=== PATIENT | male | born 1985 | race Hispanic/Latino ===

== ENCOUNTER 2020-11-21 20:21 | Inpatient (IN) | payer SELFPAY ==
--- OUTSIDE RECORDS SUMMARY | 2020-11-21 20:24 | XMS REPORT | Continuity of Care Document ---
:1985 Author Organization [facility] t Address [address] [place] [address] Care Team Providers Name Role Phone Larry Vanessa DO Attending Clinician Naomi POE Attending Clinician Russell Sims DO Attending Clinician Naomi POE Admitting Clinician Problems This patient has no known problems. Allergies, Adverse Reactions, Alerts This patient has no known allergies or adverse reactions. Medications This patient has no known medications. Procedures This patient has no known procedures. Encounters Start End Encounter Admission Attending Care Care Encounter Source Date/Time Date/Time Type Type Clinicians Facility Department ID 2020-08-10 2020-08-13 [facility] Chiara Vanessa [id number] 09:36:00 15:15:00 Encounter Willie Salgado [id number] Edgar Sims [facility] [id number] Results This patient has no known results.
--- NOTE | 2020-11-21 21:01 | EDPHYS ---
Physician Documentation [facility] Name: Alex Naik Age: 35 yrs Sex: Male : 1985 Arrival Date: 11/21/2020 Time: 20:27 Bed 5 Private MD: ED Physician Theron Christy HPI: 11/21 21:07 This 35 yrs old Male presents to ER via Ambulatory with complaints of Foot Pain, Wound jr8 Infection. 21:07 Onset: The symptoms/episode began/occurred gradually, 2 day(s) ago. Modifying factors: jr8 The symptoms are alleviated by nothing. the symptoms are aggravated by movement. Associated signs and symptoms: The patient has no apparent associated signs or symptoms. Severity of symptoms: At their worst the symptoms were moderate. It is unknown whether or not the patient has had similar symptoms in the past. The patient has not recently seen a physician. Patient stated that he has two open diabetic foot wounds that he has been cleaning and treating at home. The left one started to become more painful, red, and swollen over the last 2 days . Historical: - Allergies: 20:42 No Known Allergies; lp1 - Home Meds: 20:42 Metformin Oral [Active]; lp1 - PMHx: 20:42 Diabetes - IDDM; lp1 - PSHx: 20:42 None; lp1 - Immunization history:: Adult Immunizations up to date. - Social history:: Smoking status: Patient denies any tobacco usage or history of. ROS: 21:07 Eyes: Negative for injury, pain, redness, and discharge, ENT: Negative for injury, jr8 pain, and discharge, Neck: Negative for injury, pain, and swelling, Cardiovascular: Negative for chest pain, palpitations, and edema, Respiratory: Negative for shortness of breath, cough, wheezing, and pleuritic chest pain, Abdomen/GI: Negative for abdominal pain, nausea, vomiting, diarrhea, and constipation, Back: Negative for injury and pain, Neuro: Negative for headache, weakness, numbness, tingling, and seizure. 21:07 MS/extremity: Positive for erythema, pain, swelling, tenderness, of the left foot. 21:07 Skin: Positive for ulceration, of the right foot and left foot. Exam: 21:07 Constitutional: This is a well developed, well nourished patient who is awake, alert, jr8 and in no acute distress. Cardiovascular: Regular rate and rhythm with a normal S1 and S2. No gallops, murmurs, or rubs. Normal PMI, no JVD. No pulse deficits. Respiratory: Lungs have equal breath sounds bilaterally, clear to auscultation and percussion. No rales, rhonchi or wheezes noted. No increased work of breathing, no retractions or nasal flaring. MS/ Extremity: Pulses equal, no cyanosis. Neurovascular intact. Full, normal range of motion. Neuro: Awake and alert, GCS 15, oriented to person, place, time, and situation. Cranial nerves II-XII grossly intact. Motor strength 5/5 in all extremities. Sensory grossly intact. 21:07 Skin: Patient has 2 cm open wound to right foot. No erythema or discharge noted. Patient has another 2 cm open wound to left foot at the great toe with surrounding erythema and swelling extending to dorsum of foot . Vital Signs: 20:40 BP 151 / 90; Pulse 88; Resp 18; Temp 99.7(O); Pulse Ox 100% on R/A; Weight 92.08 kg lp1 (R); Height 5 ft. 8 in. (172.72 cm); Pain 9/10; 11/22 00:16 BP 125 / 78; Pulse 78; Resp 18; Temp 98.9; Pulse Ox 99% ; ea 11/21 20:40 Body Mass Index 30.87 (92.08 kg, 172.72 cm) lp1 MDM: 11/21 20:53 Patient medically screened. jr8 20:59 Data reviewed: vital signs, nurses notes, lab test result(s), radiologic studies, plain jr8 films. Data interpreted: Pulse oximetry: on room air is 100 %. Interpretation: normal. Counseling: I had a detailed discussion with the patient and/or guardian regarding: the historical points, exam findings, and any diagnostic results supporting the discharge/admit diagnosis, lab results, radiology results, the need for further work-up and treatment in the hospital. 11/21 20:58 Order name: CBC with Diff 8 11/21 20:58 Order name: Basic Metabolic Panel; Complete Time: 22:27 [facility] 11/21 20:58 Order name: Blood Culture Adult (2) [facility] 11/21 20:58 Order name: ESR; Complete Time: 23:49 jr8 11/21 20:58 Order name: CRP; Complete Time: 22:27 jr8 11/21 20:59 Order name: CBC with Automated Diff; Complete Time: 23:49 EDMS 11/21 20:58 Order name: XRAY Foot LEFT 3 View jr8 11/21 21:01 Order name: XRAY Foot RIGHT 3 View jr8 11/21 21:16 Order name: COVID-19 : Document "Date of Symptom Onset" if Symptomatic. iw 11/21 20:58 Order name: IV; Complete Time: 21:23 jr8 Administered Medications: 21:18 Drug: Zofran (Ondansetron) 4 mg Route: IVP; Site: right forearm; ea 21:22 Drug: LevaQUIN (levofloxacin) 500 mg Volume: 100 ml; Route: IVPB; Infused Over: 60 ea mins; Site: right forearm; 22:41 Follow up: Response: No adverse reaction; IV Status: Completed infusion rr5 21:22 Drug: morphine 4 mg Route: IVP; Site: right forearm; ea 22:20 Drug: vancoMYCIN 1 grams Route: IVPB; Infused Over: 2 hrs; Site: right forearm; ea 22:58 Drug: Insulin Regular Human 10 units {Co-Signature: rr5 (Alfonso Akhtar RN).} Route: ea Sub-Q; Site: left upper arm; 22:59 Drug: NS 0.9% 1000 ml Route: IV; Rate: 100 ml/hr; Site: right forearm; ea Disposition: 11/22 07:06 Co-signature as Attending Physician, Theron Christy MD. [facility] Disposition: 11/21/20 21:00 Hospitalization ordered by Juvenal Hyman for Inpatient Admission. Preliminary diagnosis are Diabetes mellitus due to underlying condition with foot ulcer, Cellulitis of left lower limb, Osteomyelitis. - Bed requested for Telemetry/MedSurg (Inpatient). - Status is Inpatient Admission. ea - Condition is Stable. - Problem is new. - Symptoms are unchanged. Signatures: Dispatcher [employer] [facility] Coretta Wilcox RN RN lp1 Andrez Carrera PA PA jr8 Lory Hidalgo RN RN cg Antunez, Elena, RN RN ea Holmes, Maurice, MD MD [facility] Alfonso Akhtar RN rr5 Alfonso Akhtar RN rr5 Corrections: (The following items were deleted from the chart) 11/21 21:48 21:00 Hospitalization Ordered by Juvenal Hyman DO for Inpatient Admission. Preliminary cg diagnosis is Diabetes mellitus due to underlying condition with foot ulcer; Cellulitis of left lower limb; Osteomyelitis. Bed requested for Telemetry/MedSurg (Inpatient). Status is Inpatient Admission. Condition is Stable. Problem is new. Symptoms are unchanged. jr8 11/22 00:16 11/21 21:48 11/21/2020 21:00 Hospitalization Ordered by Juvenal Hyman DO for Inpatient ea Admission. Preliminary diagnosis is Diabetes mellitus due to underlying condition with foot ulcer; Cellulitis of left lower limb; Osteomyelitis. Bed requested for Telemetry/MedSurg (Inpatient). Status is Inpatient Admission. Condition is Stable. Problem is new. Symptoms are unchanged. cg
--- NOTE | 2020-11-21 21:01 | ER ---
Nurse's Notes [facility] Name: Alex Naik Age: 35 yrs Sex: Male : 1985 Arrival Date: 11/21/2020 Time: 20:27 Bed 5 Private MD: Diagnosis: Diabetes mellitus due to underlying condition with foot ulcer;Cellulitis of left lower limb;Osteomyelitis Presentation: 11/21 20:40 Chief complaint: Patient states: Reports infection to left great toe for the past lp1 month, becoming more painful; reports some "white liquid" drainage from site; Denies fever. Coronavirus screen: Client denies travel out of the [place] in the last 14 days. At this time, the client does not indicate any symptoms associated with coronavirus-19. Ebola Screen: No symptoms or risks identified at this time. Risk Assessment: Do you want to hurt yourself or someone else? Patient reports no desire to harm self or others. Onset of symptoms was November 21, 2020. 20:40 Method Of Arrival: Ambulatory lp1 20:40 Acuity: JCARLOS 3 lp1 20:40 Initial Sepsis Screen: Does the patient meet any 2 criteria? No. Patient's initial lp1 sepsis screen is negative. Does the patient have a suspected source of infection? No. Patient's initial sepsis screen is negative. Triage Assessment: 23:19 General: Appears in no apparent distress. Behavior is appropriate for age. Pain: ea Complains of pain in right foot and left foot. Historical: - Allergies: 20:42 No Known Allergies; lp1 - Home Meds: 20:42 Metformin Oral [Active]; lp1 - PMHx: 20:42 Diabetes - IDDM; lp1 - PSHx: 20:42 None; lp1 - Immunization history:: Adult Immunizations up to date. - Social history:: Smoking status: Patient denies any tobacco usage or history of. Screenin:01 Abuse screen: Denies threats or abuse. Nutritional screening: No deficits noted. ea Tuberculosis screening: No symptoms or risk factors identified. Fall Risk None identified. Assessment: 21:30 General: Appears in no apparent distress. Behavior is calm, cooperative, appropriate ea for age. Pain: Complains of pain in right foot and left foot. Cardiovascular: Patient's skin is warm and dry. Respiratory: Airway is patent Respiratory effort is even, unlabored, Respiratory pattern is regular, symmetrical. Derm: Skin is pink, warm \\T\\ dry. Wound noted ball of right foot and plantar aspect of left first toe Wound is diabetic ulcer unsteagable with eschar tissue. 22:00 Reassessment: Patient and/or family updated on plan of care and expected duration. Pain ea level reassessed. Patient is alert, oriented x 3, equal unlabored respirations, skin warm/dry/pink. Vital Signs: 20:40 BP 151 / 90; Pulse 88; Resp 18; Temp 99.7(O); Pulse Ox 100% on R/A; Weight 92.08 kg lp1 (R); Height 5 ft. 8 in. (172.72 cm); Pain /; 11/22 00:16 BP 125 / 78; Pulse 78; Resp 18; Temp 98.9; Pulse Ox 99% ; ea 11/21 20:40 Body Mass Index 30.87 (92.08 kg, 172.72 cm) lp1 ED Course: 11/21 20:27 Patient arrived in ED. bp1 20:41 Triage completed. lp1 20:42 Arm band placed on right wrist. lp1 20:47 Andrez Carrera PA is PHCP. jr8 20:47 Theron Christy MD is Attending Physician. jr8 20:58 Audra Lovell, ZI is Primary Nurse. ea 20:59 Juvenal Hyman DO is Hospitalizing Provider. jr8 21:01 Patient has correct armband on for positive identification. Bed in low position. Call ea light in reach. Side rails up X2. 21:18 Inserted saline lock: 20 gauge in right forearm, using aseptic technique. Blood ea collected. 21:43 XRAY Foot LEFT 3 View In Process Unspecified. EDMS 21:43 XRAY Foot RIGHT 3 View In Process Unspecified. EDMS 23:27 No provider procedures requiring assistance completed. Patient admitted, IV remains in ea place. Administered Medications: 21:18 Drug: Zofran (Ondansetron) 4 mg Route: IVP; Site: right forearm; ea 21:22 Drug: LevaQUIN (levofloxacin) 500 mg Volume: 100 ml; Route: IVPB; Infused Over: 60 ea mins; Site: right forearm; 22:41 Follow up: Response: No adverse reaction; IV Status: Completed infusion rr5 21:22 Drug: morphine 4 mg Route: IVP; Site: right forearm; ea 22:20 Drug: vancoMYCIN 1 grams Route: IVPB; Infused Over: 2 hrs; Site: right forearm; ea 22:58 Drug: Insulin Regular Human 10 units {Co-Signature: rr5 (Alfonso Akhtar RN).} Route: ea Sub-Q; Site: left upper arm; 22:59 Drug: NS 0.9% 1000 ml Route: IV; Rate: 100 ml/hr; Site: right forearm; ea Outcome: 21:00 Decision to Hospitalize by Provider. 8 23:27 Instructed on the need for admit. ea 11/22 00:15 Admitted to Med/surg accompanied by tech, via wheelchair, room 230, with chart, Report ea called to Receiving nurse on second floor Condition: stable 00:16 Patient left the ED. ea Signatures: Dispatcher [employer] EDMS Coretta Wilcox RN RN lp1 Andrez Carrera PA PA jr8 Audra Lovell RN RN ea Roque, Raymond, RN RN rr5 Cesia Jackson RN rr5 Corrections: (The following items were deleted from the chart) 11/21 20:45 20:40 Acuity: JCARLOS 4 lp1 lp1
[2020-11-21] MEDS ORDERED: MORPHINE 4 MG/ML SYR ONE (21:22)
[2020-11-21] MEDS ORDERED: Levofloxacin500mg IV 500 MG/100 ML BAG IV ONE (21:22)
[2020-11-21] MEDS ORDERED: VANCOMYCIN 1 GM/VIAL ONE (21:22)
[2020-11-21] MEDS ORDERED: ONDANSETRON 4 MG/2 ML VIAL ONE (21:22)
[2020-11-21] MEDS ORDERED: NA CHLORIDE 0.9% 250 ML ONE (21:22)
[2020-11-21 22:22] LABS: Potassium 4.5 mmol/L (3.5-5.1)
[2020-11-21 22:24] LABS: Absolute Lymphocytes (CBC) 2.1 K/uL (0.7-4.9); Basophils % 0.5 % (0-1.3); Hematocrit 37.9 % (39.6-49.0); Lymphocytes % 17.5 % (15.3-44.8); MPV 9.5 fL (7.6-11.3)
[2020-11-21] MEDS ORDERED: INSULIN -REGULAR HUMAN 50 UNIT/0.5 ML ML ONE (23:10)
[2020-11-21] MEDS ORDERED: NA CHLORIDE 0.9% 1,000 ML ONE (23:10)
[2020-11-22] MEDS ORDERED: ONDANSETRON 4 MG/2 ML VIAL IV PRN (00:32)
[2020-11-22 00:51] VITALS: BMI 31.1
[2020-11-22] MEDS: NA CHLORIDE 0.9% 1,000 ML IV SCH ×4 (00:51→23:08)
[2020-11-22] MEDS: MORPHINE 2 MG/ML SYR IV PRN ×4 (00:53→23:26)
--- NOTE | 2020-11-22 00:59 | P.HP ---
Certification for Inpatient Patient admitted to: Inpatient With expected LOS: >2 Midnights Patient will require the following post-hospital care: None Practitioner: I am a practitioner with admitting privileges, knowledge of patient current condition, hospital course, and medical plan of care. Services: Services provided to patient in accordance with Admission requirements found in Title 42 Section 412.3 of the Code of Federal Regulations Patient History Date of Service: 11/21/20 Reason for admission: Diabetic ulcer History of Present Illness: 35-year-old male with history of diabetes mellitus type 2 presents emergency department for left great toe wound/infection. Patient reports that he has had a diabetic ulcer to the plantar aspect of his left great toe for approximately 1 month but noticed approximately 2 days ago areas of redness swelling and White discharge. Patient also noted to have ulceration to the plantar aspect of the right midfoot. Patient evaluated in the emergency department, labs significant for white blood cell count 11.7 creatinine 1.63 GFR 48, no labs available for comparison, glucose 400 C-reactive protein 117 sodium 132. X-rays of both feet obtains left foot without acute fracture or dislocation, no reported osteomyelitis signs, x-ray of the right foot demonstrates constellation of findings suspicious for Charcot arthropathy. ED provider wishes to admit patient for diabetic foot wound and uncontrolled diabetes mellitus type 2. Allergies No Known Allergies Allergy (Unverified 11/22/20 00:32) - Past Medical/Surgical History Diabetic: Yes -: Diabetes mellitus type 2 -: Debridement dorsum of right foot Psychosocial/ Personal History: Patient is unemployed, lives with his mother - Family History Mother -: Hypertension, Diabetes - Social History Smoking Status: Never smoker Alcohol use: Yes CD- Drugs: No Caffeine use: Yes Place of Residence: Home Review of Systems 10-point ROS is otherwise unremarkable Musculoskeletal: Foot Pain, As per HPI Integumentary: As per HPI Physical Examination - Vital Signs Temperature: 98.9 F Blood Pressure: 125/78 Pulse: 78 Respirations: 18 - Physical Exam General: Alert, In no apparent distress, Oriented x3 HEENT: Atraumatic, PERRLA, Mucous membr. moist/pink Neck: Supple, 2+ carotid pulse no bruit, No LAD Respiratory: Clear to auscultation bilaterally, Normal air movement Cardiovascular: Regular rate/rhythm, Normal S1 S2 Gastrointestinal: Normal bowel sounds, No tenderness Musculoskeletal: No tenderness Integumentary: Diabetic ulcer (Plantar aspect of left great toe with necrotic tissue present and right midfoot) Neurological: Normal speech, Normal strength at 5/5 x4 extr, Normal tone, Normal affect Lymphatics: No axilla or inguinal lymphadenopathy - Studies Laboratory Data (last 24 hrs) 11/21/20 21:19: Sodium 132 L, Potassium 4.5, BUN 27 H, Creatinine 1.63 H, Glucose 400 H 11/21/20 21:19: WBC 11.70 H, Hgb 13.0 L, Hct 37.9 L, Plt Count 249 Assessment and Plan - Plan Assessment Diabetic ulceration dorsum of left great toe with necrotic tissue present, ulceration of the right midfoot Diabetes mellitus type 2 complicated with hyperglycemia Renal insufficiency Charcot arthropathy of the right foot Plan Diabetic ulceration dorsum of left great toe with necrotic tissue present, ulceration of the right midfoot: Continue with IV vancomycin/Levaquin, general surgery consulted for debridement. NPO after midnight. X-ray of the left great toe negative for signs of osteomyelitis, will order an MRI to rule out completely. DVT prophylaxis with Lovenox 40 mg subcutaneous once daily. Will consult wound healing. Diabetes mellitus type 2 complicated with hyperglycemia: A1c with morning labs, a.c. HS Accu-Cheks, sliding scale insulin therapy. Patient was reportedly on NPH previously and has not been on his insulin or metformin for approximately 1 month. Will initiate insulin therapy with 15 units of NPH twice daily. Renal insufficiency: No labs available for comparison, patient not aware of any renal dysfunction, will continue with hydration overnight, consult nephrology as necessary. Charcot arthropathy of the right foot: Patient need to follow up with podiatry on an outpatient basis. Discharge Plan: Home Plan to discharge in: Greater than 2 days - Advance Directives Does patient have a Living Will: No Does patient have a Durable POA for Healthcare: No - Code Status/Comfort Care Code Status Assessed: Yes (Full code) Critical Care: No Time Spent Managing Pts Care (In Minutes): 55
[2020-11-22] MEDS ORDERED: VANCOMYCIN 750 MG in NA CHLORIDE 0.9% 150 ML IVPB ONE (01:00)
[2020-11-22] MEDS ORDERED: VANCOMYCIN 1 GM/VIAL ONE (01:03)
[2020-11-22] MEDS ORDERED: NA CHLORIDE 0.9% 250 ML ONE (01:04)
[2020-11-22 06:41] LABS: Absolute Lymphocytes (CBC) 2.1 K/uL (0.7-4.9); Basophils % 0.5 % (0-1.3); Hematocrit 32.2 % (39.6-49.0); MPV 8.5 fL (7.6-11.3)
[2020-11-22 07:19] LABS: Albumin 2.3 g/dL (3.4-5.0); Bilirubin Total 0.3 mg/dL (0.2-1.0); Potassium 4.3 mmol/L (3.5-5.1); Protein, Total 6.5 g/dL (6.4-8.2)
[2020-11-22 07:22] LABS: Thyroid Stimulating Hormone 4.35 uIU/mL (0.360-3.740)
[2020-11-22] MEDS ORDERED: INSULIN 70/30 100 UNITS/ML SQ SCH (07:30)
[2020-11-22] MEDS: INSULIN -REGULAR HUMAN 50 UNIT/0.5 ML ML SQ SCH ×4 (07:30→20:28)
[2020-11-22] MEDS: Levofloxacin500mg IV 500 MG/100 ML BAG IV SCH (08:49)
[2020-11-22] MEDS ORDERED: VANCOMYCIN/NS 1 gm 1 GM/250 ML BAG IVPB SCH (09:00)
[2020-11-22] MEDS ORDERED: MIDAZOLAM HCL 2 MG/2 ML INJ ONE (11:01)
[2020-11-22] MEDS ORDERED: propofoL 200 MG/20 ML VIAL IV ONE (11:01)
[2020-11-22] MEDS ORDERED: dexAMETHasone 4 MG/ML VIAL ONE (11:02)
[2020-11-22] MEDS ORDERED: KETOROLAC 30 MG/ML INJ ONE (11:02)
[2020-11-22] MEDS ORDERED: LIDOCAINE 1% MPF 5 ML VIAL ONE (11:02)
[2020-11-22] MEDS ORDERED: FENTANYL CITR 100 MCG/2 ML ONE (11:02)
[2020-11-22] MEDS ORDERED: ONDANSETRON 4 MG/2 ML VIAL ONE (11:03)
--- NOTE | 2020-11-22 11:10 | P.PN ---
Subjective Date of Service: 11/22/20 Chief Complaint: Diabetic ulcer Subjective: Doing well Physical Examination - Vital Signs Temperature: 98.1 F Blood Pressure: 129/77 Pulse: 86 Respirations: 16 Pulse Ox (%): 97 - Studies Laboratory Data (last 24 hrs) 11/21/20 21:19: Sodium 132 L, Potassium 4.5, BUN 27 H, Creatinine 1.63 H, Glucose 400 H 11/21/20 21:19: WBC 11.70 H, Hgb 13.0 L, Hct 37.9 L, Plt Count 249 Assessment & Plan Discharge Plan: Home Plan to discharge in: 48 Hours Physician Review Additional Text: Physical exam: Patient alert, cooperative. No significant distress noted Heart: regular rate and rhythm Lungs: clear to auscultation GI: Soft nontender nondistended Extremities: Good range of motion to upper lower extremities Skin: Diabetic ulcer to the left great toe. Erythema, swelling noted. Ulcer to the right mid forefoot region also noted bandage in place. Impression: Diabetic ulceration to the dorsum of left great toe with cellulitis suspicious for osteomyelitis along with ulceration of the right midfoot Diabetes mellitus type 2 complicated with hyperglycemia Renal insufficiency Charcot arthropathy of the right foot Anemia of chronic disease Obesity, BMI 31.2 Plan Diabetic ulceration to the dorsum of left great toe with cellulitis suspicious for osteomyelitis along with ulceration of the right midfoot: Continue IV vancomycin and Levaquin. Surgery to do debridement today. X-rays negative for osteomyelitis. MRI ordered to further evaluate. If abnormal patient will require long-term IV to buttock therapy likely for 6 weeks. Continue DVT prophylaxis. Continue wound care. Patient will need strict control of diabetes. This was addressed in detail with the patient. We will try to set up with PCP to further monitor and manage his condition. Await recommendations by surgery. I will turn the service over to the hospitalist team tomorrow. I will go plan of care with him. Diabetes mellitus type 2 complicated with hyperglycemia: Hemoglobin A1c 11.5. Continue Accu-Cheks and sliding scale. We will start NPH. We will continue to adjust medication. We will try to arrange for the patient to see a PCP to continue his care as an outpatient. Hold Metformin at this time due to acute renal insufficiency. May need to restart at discharge if renal function stable. Acute renal insufficiency likely dehydration: Continue IV fluids and hydration. Will monitor and adjust medication appropriately. Will monitor renal function. Charcot arthropathy of the right foot: Patient need to follow up with podiatry on an outpatient basis. Anemia of chronic disease: We will monitor lab closely. Will check iron and B12 studies. Obesity, BMI 31.2: Continue lifestyle modification education. Time Spent Managing Pts Care (In Minutes): 55
[2020-11-22] MEDS ORDERED: GLUCAGON 1 MG/VIAL IM PRN (11:21)
[2020-11-22] MEDS ORDERED: TRAMADOL HCL 50 MG TAB PO PRN (11:22)
[2020-11-22] MEDS ORDERED: D50W 25 GM/50 ML VIAL IV PRN (11:35)
--- NOTE | 2020-11-22 11:49 | P.OP ---
Nut Tapper: NONE,NONE Preoperative diagnosis: Infected Wound BLE--Left great toe and Right foot wound Postoperative diagnosis: same Primary procedure: Debridement BLE wounds--Left great toe to sq and right foot wound to sq Anesthesia: General Estimated blood loss: min Specimen: C&S Findings: as above Complications: None Transferred to: Recovery Room Condition: Good
[2020-11-22] MEDS: COLLAGENASE 30 GM OINTMENT TOP ONE ×2 (11:52→11:53)
[2020-11-22] MEDS ORDERED: NEOSTIGMINE 1 MG/ML -5 ML ONE (11:52)
[2020-11-22] MEDS ORDERED: GLYCOPYRROLATE 0.2 MG/ML SYR ONE (11:52)
[2020-11-22] MEDS ORDERED: NA CHLORIDE 0.9% 1,000 ML ONE (11:53)
[2020-11-22] MEDS: VANCOMYCIN 1.75 GM in NA CHLORIDE 0.9% 500 ML IVPB SCH ×2 (12:23→23:05)
--- NOTE | 2020-11-22 12:33 | CON ---
Date of Consultation: 11/21/2020 Reason For Consultation: Infected wounds, bilateral lower extremities. History Of Present Illness: The patient is a 35-year-old gentleman, who presents with a long history of a left great toe wound. The right foot wound was started in March, I believe 2018, when he l ived in [place] at that time and [facility] be [facility] and then he recently in the last couple of months developed a nonhealing wound on the left great toe. He is a diabetic and has b een unable to get his insulin or he has no access to medical care. He says that he does not have ins urance and has not been able to get routine medical care that he needs. He came in because the wound had a foul smelling odor to it and had a whitish discharge pus and then he was evaluated in the [facility] room and was admitted for further workup. He does have x-ray finding of Charcot arthropathy on the right foot x-rays. Review of Systems: Otherwise unremarkable. Past Medical History: Significant for diabetes type 2. Past Surgical History: Debridement of the right foot wounds. Allergies: NO ALLERGIES. Social History: Does not smoke. Does drink alcohol. Family History: Significant for hypertension and diabetes. Physical Examination: Vital Signs: Stable. He is afebrile. General: He is awake, alert, and oriented x3. Head and Neck: Cranial nerves 2 through 12 are grossly within normal limits. No neck masses. No JV D. Throat clear. Neck supple. Chest: Clear. Heart: S1 and S2. Abdomen: Soft. Extremities: Neurovascularly intact. Diminished sensation and diminished dorsalis pedis and posteri or tibial pulses. On the right mid foot on the plantar aspect, there is approximately a 2.5 cm wound with infected edges, pressure ulcer as to the extent of the infection is unclear, but there does not appear to be abscess present. It does need debridement of the edges to have necrotic tissue. On th e left great toe, approximately a 1 inch open wound secondary to pressure with purulence emanating fr om it. There is surrounding erythema, warmth, and edema. Assessment: Bilateral lower extremity infected wounds, peripheral vascular disease, and diabetes. Recommendations: Continue IV antibiotics. We will debride the wound today. He will need further wo rkup to see whether he has significant osteo or not and whether he has any correctable vascular issue s. Following which, appropriate recommendation will be made. He can follow up in the [facility] regarding his wound care. The patient and family understand the risks, benefits, and alternative s of the debridement procedure and agreed. /[email or web address] Voice ID: [id number] Report ID: [id number]
--- NOTE | 2020-11-22 12:49 | OP ---
Date of Procedure: 11/22/2020 Surgeon: Santiago Mendoza MD Business Assistant: None. Preoperative Diagnosis: Infected wound, bilateral lower extremities. Postoperative Diagnosis: Infected wound, bilateral lower extremities. Procedure: Debridement of left great toe, 2 x 2 cm to subcutaneous tissue and debridement of right f oot plantar wound 3 x 3 cm to subcutaneous tissue. Estimated Blood Loss: Minimal. Specimen: Culture and sensitivity. Finding: As above. Anesthesia: General. Complications: None. Disposition: The patient tolerated the procedure in stable condition and taken to Recovery in good g eneral condition. Procedure In Detail: The patient was brought to the OR and placed in supine position. General anest hesia begun. The patient was prepped and draped in the usual sterile fashion. A 15-blade and scisso rs used to debride the callus portion of the wounds and the necrotic tissue was debrided in the cente r of the wound down through the subcutaneous tissue. There was some purulence present. Cultures wer e done. Then, after all debridement tissue wounds were removed, wound irrigated, bleeding controlled with cautery and Santyl dressing applied. The patient tolerated the procedure in stable condition and taken to Recovery in good general condition. /MODL Voice ID: [id number] Report ID: [id number]
[2020-11-22] MEDS: NPH (HUMAN) 100 UNITS/ML INSULIN SQ SCH (16:19)
[2020-11-22] MEDS ORDERED: VANCOMYCIN 1.75 GM in NA CHLORIDE 0.9% 500 ML IVPB SCH (19:00)
[2020-11-22] MEDS: HYDROCODONE/APAP 7.5/325 MG TAB PO PRN (20:25)
[2020-11-23 06:29] LABS: Absolute Lymphocytes (CBC) 1.3 K/uL (0.7-4.9); Basophils % 0.1 % (0-1.3); Hematocrit 30.6 % (39.6-49.0); Lymphocytes % 14.8 % (15.3-44.8); MPV 8.5 fL (7.6-11.3); RBC Red Blood Cell Count 3.82 M/uL (4.33-5.43)
[2020-11-23] MEDS: NA CHLORIDE 0.9% 1,000 ML IV SCH ×2 (06:32→17:06)
[2020-11-23 07:42] LABS: Ferritin 420.2 ng/mL (26-388); Potassium 4.3 mmol/L (3.5-5.1)
[2020-11-23] MEDS: ENOXAPARIN 40 MG/0.4 ML SQ SCH (08:24)
[2020-11-23] MEDS: NPH (HUMAN) 100 UNITS/ML INSULIN SQ SCH ×2 (08:25→17:08)
[2020-11-23] MEDS: INSULIN -REGULAR HUMAN 50 UNIT/0.5 ML ML SQ SCH ×4 (08:25→21:24)
[2020-11-23] MEDS: ASPIRIN EC 81 MG TAB PO SCH (08:25)
[2020-11-23] MEDS: FOLIC ACID 1 MG TABLET PO SCH (08:25)
[2020-11-23] MEDS: Levofloxacin500mg IV 500 MG/100 ML BAG IV SCH (08:26)
[2020-11-23] MEDS: MORPHINE 2 MG/ML SYR IV PRN ×3 (08:32→21:26)
[2020-11-23] MEDS: VANCOMYCIN 1.75 GM in NA CHLORIDE 0.9% 500 ML IVPB SCH ×2 (11:00→17:14)
--- NOTE | 2020-11-23 13:02 | RAD REPORT ---
EXAM DESCRIPTION: MRI - Foot Left Wo Cont - 11/23/2020 12:49 pm CLINICAL HISTORY: R/O osteomyelitis COMPARISON: Foot Left 3 View dated 11/21/2020; Foot Right 3 View dated 11/21/2020 TECHNIQUE: Multiplanar imaging of the left foot performed using T1 weighted, T1 fat saturation, T2 f at saturation and T2 stir sequencing. FINDINGS: Hypointense T1 and hyperintense T2 signal present throughout the first distal phalanx and most of the first proximal phalanx. No gross bone destructive changes on MR imaging. There is surroun ding edematous/ inflammatory soft tissue signal. No abscess or drainable fluid collections seen. The second- fifth toes and the metatarsals show no abnormal signal abnormality. No significant soft t issue signal abnormality. IMPRESSION: Osteomyelitis of the left first proximal and distal phalanges. No linn bone destruction evident. Edematous/inflammatory first toe soft tissues without drainable fluid collection
--- NOTE | 2020-11-23 14:57 | RAD REPORT ---
EXAM DESCRIPTION: X Ray Foot Left 3 View; 3 views CLINICAL HISTORY: 35 years Male, PAIN COMPARISON: None. FINDINGS/IMPRESSION: 1. No acute fracture or dislocation. 2. Moderate sized plantar calcaneal enthesopathy is present. 3. Vascular calcifications are present. Electronically signed by: Sarabjit Rossi MD 11/21/2020 10:29 PM CDT Due to temporary technical issues with the PACS/Fluency reporting system, reports are being signed by the in house radiologists without review as a courtesy to insure prompt reporting. The interpreting radiologist is fully responsible for the content of the report.
--- NOTE | 2020-11-23 15:05 | RAD REPORT ---
EXAM DESCRIPTION: X Ray Foot Right 3 View; 3 views CLINICAL HISTORY: 35 years Male, PAIN COMPARISON: None. FINDINGS: Extensive bony destruction across the midfoot with with chronic appearing bony fragmentati on and debris. There is lateral dislocation across the midfoot and midfoot collapse. Fifth metatarsal head, proximal and middle phalanx are absent. Diffuse soft tissue swelling with plantar ulceration a t the level of the midfoot are present. IMPRESSION: Constellation of findings as described above suspicious for Charcot arthropathy. Electronically signed by: Sarabjit Rossi MD 11/21/2020 10:36 PM CDT Due to temporary technical issues with the PACS/Fluency reporting system, reports are being signed by the in house radiologists without review as a courtesy to insure prompt reporting. The interpreting radiologist is fully responsible for the content of the report.
[2020-11-23] MEDS: HYDROCODONE/APAP 7.5/325 MG TAB PO PRN (17:14)
[2020-11-24] MEDS: NA CHLORIDE 0.9% 1,000 ML IV SCH ×4 (02:32→21:49)
[2020-11-24 04:34] LABS: Basophils % 0.8 % (0-1.3); Hematocrit 29.7 % (39.6-49.0); Lymphocytes % 33.2 % (15.3-44.8); MPV 8.2 fL (7.6-11.3); RBC Red Blood Cell Count 3.68 M/uL (4.33-5.43)
[2020-11-24 04:51] LABS: Potassium 4.2 mmol/L (3.5-5.1)
[2020-11-24] MEDS: MORPHINE 2 MG/ML SYR IV PRN ×3 (06:18→22:35)
[2020-11-24] MEDS: INSULIN -REGULAR HUMAN 50 UNIT/0.5 ML ML SQ SCH ×4 (07:30→21:00)
[2020-11-24] MEDS: FOLIC ACID 1 MG TABLET PO SCH (08:38)
[2020-11-24] MEDS: ASPIRIN EC 81 MG TAB PO SCH (08:38)
[2020-11-24] MEDS: ENOXAPARIN 40 MG/0.4 ML SQ SCH (08:38)
[2020-11-24] MEDS: Levofloxacin500mg IV 500 MG/100 ML BAG IV SCH (08:39)
[2020-11-24] MEDS: NPH (HUMAN) 100 UNITS/ML INSULIN SQ SCH ×2 (08:39→16:52)
--- NOTE | 2020-11-24 09:55 | P.PN ---
Subjective Date of Service: 11/23/20 Patient's MRI revealed osteomyelitis. Patient will need outpatient IV antibiotic therapy. Review of Systems 10-point ROS is otherwise unremarkable Physical Examination - Vital Signs Temperature: 97.9 F Blood Pressure: 130/75 Pulse: 76 Respirations: 19 Pulse Ox (%): 98 - Physical Exam General: Alert, In no apparent distress, Oriented x3 Respiratory: Clear to auscultation bilaterally, Normal air movement Cardiovascular: Regular rate/rhythm, Normal S1 S2, No murmurs Gastrointestinal: Normal bowel sounds, Soft and benign, Non-distended, No tenderness Musculoskeletal: No clubbing, No swelling, No tenderness Neurological: Sensation intact, Cranial nerves 3-12 intact - Studies Medications List Reviewed: Yes Assessment & Plan - Problems (Diagnosis) (1) Osteomyelitis Current Visit: Yes Status: Acute - Plan 1. Continue with IV antibiotic 2. Continue with local wound care 3. Wound care consultation/surgical consultation 4. Gentle IV hydration 5. Monitor CBC 6. Strict blood sugar monitoring 7. Pain control 8. GI and DVT prophylaxis Discharge Plan: Home Plan to discharge in: Greater than 2 days - Advance Directives Does patient have a Living Will: No Does patient have a Durable POA for Healthcare: No - Code Status/Comfort Care Code Status Assessed: Yes Code Status: Full Code Critical Care: No Time Spent Managing PTS Care (In Minutes): 35
--- NOTE | 2020-11-24 11:17 | RAD REPORT ---
EXAM DESCRIPTION: RAD - Chest Single View - 11/24/2020 10:48 am CLINICAL HISTORY: PICC line placement COMPARISON: None. FINDINGS: Portable chest was obtained following placement of a right upper extremity PICC line. The catheter tip is in the proximal most SVC.
--- NOTE | 2020-11-24 12:10 | RAD REPORT ---
EXAM DESCRIPTION: RAD - Chest Single View - 11/24/2020 12:00 pm CLINICAL HISTORY: PICC line placement COMPARISON: Portable November 24 FINDINGS: Portable chest was obtained following placement of a right upper extremity PICC line. The catheter tip is in the distal SVC.
[2020-11-24] MEDS: VANCOMYCIN 1.75 GM in NA CHLORIDE 0.9% 500 ML IVPB SCH (12:19)
--- NOTE | 2020-11-24 13:06 | PN ---
Date of Progress Note: 11/24/2020 Subjective: The patient is awake alert. No complaints. Objective: Vital signs: Stable, afebrile. Extremities: Dressing is clean, dry, and intact. Laboratory Data: Cultures pending. MRI shows osteomyelitis of the left first toe. Assessment: Status post debridement of bilateral foot wounds with osteomyelitis of the left foot. Recommendations: Continue wound care as ordered. IV antibiotics. Check cultures and adjust antibio tics accordingly. PICC line and the patient will need 6 weeks IV antibiotics. The patient can follo w up with me in the [facility] upon discharge. /MODL Voice ID: [id number] Report ID: [id number]
[2020-11-25] MEDS: MORPHINE 2 MG/ML SYR IV PRN (04:34)
[2020-11-25] MEDS: NA CHLORIDE 0.9% 1,000 ML IV SCH (04:34)
[2020-11-25 05:08] LABS: BUN Blood Urea Nitrogen 17 mg/dL (7-18); Bicarbonate 26 mmol/L (21-32); Glucose Level 152 mg/dL (74-106); Magnesium 1.7 mg/dL (1.8-2.4); Sodium Level 140 mmol/L (136-145)
[2020-11-25] MEDS: VANCOMYCIN 1.75 GM in NA CHLORIDE 0.9% 500 ML IVPB SCH (05:45)
[2020-11-25] MEDS: INSULIN -REGULAR HUMAN 50 UNIT/0.5 ML ML SQ SCH ×2 (07:30→12:42)
--- NOTE | 2020-11-25 07:41 | P.PN ---
Date of Service: 11/24/20 Subjective Patient is clinically doing well with no new complaints. Clinical symptoms continued to improve. Review of Systems 10-point ROS is otherwise unremarkable Physical Examination - Vital Signs Reviewed - Physical Exam General: Alert, In no apparent distress, Oriented x3 Respiratory: Clear to auscultation bilaterally, Normal air movement Cardiovascular: Regular rate/rhythm, Normal S1 S2, No murmurs Gastrointestinal: Normal bowel sounds, Soft and benign, Non-distended, No tenderness Musculoskeletal: No clubbing, No swelling, No tenderness Neurological: Sensation intact, Cranial nerves 3-12 intact Assessment 1. Osteomyelitis 2. History of diabetes Plan 1. Continue with IV antibiotic 2. Continue with local wound care 3. Wound care consultation/surgical consultation 4. Gentle IV hydration 5. Monitor CBC 6. Strict blood sugar monitoring 7. Pain control 8. GI and DVT prophylaxis
[2020-11-25] MEDS ORDERED: MAGNESIUM SULFATE 1 gm IVPB 1 GM/100 ML BAG IV ONE (08:00)
--- NOTE | 2020-11-25 09:02 | P.DS ---
Discharge Date: 11/25/20 Disposition: ROUTINE DISCHARGE Discharge Condition: GOOD Reason for Admission: Diabetic ulcer Consultations: General surgery - Problems (1) Osteomyelitis Current Visit: Yes Status: Acute Brief History of Present Illness: 35-year-old male with history of diabetes mellitus type 2 presents emergency department for left great toe wound/infection. Patient reports that he has had a diabetic ulcer to the plantar aspect of his left great toe for approximately 1 month but noticed approximately 2 days ago areas of redness swelling and White discharge. Patient also noted to have ulceration to the plantar aspect of the right midfoot. Patient evaluated in the emergency department, labs significant for white blood cell count 11.7 creatinine 1.63 GFR 48, no labs available for comparison, glucose 400 C-reactive protein 117 sodium 132. X-rays of both feet obtains left foot without acute fracture or dislocation, no reported osteomyelitis signs, x-ray of the right foot demonstrates constellation of findings suspicious for Charcot arthropathy. ED provider wishes to admit patient for diabetic foot wound and uncontrolled diabetes mellitus type 2. Hospital Course: Patient was taken to the operating room for debridement. Patient was found have osteomyelitis on MRI findings. Patient will need outpatient IV antibiotic therapy. Patient is unfunded and unable to get home health normally able to provide placement at a care home facility. Patient will need to come back to the hospital daily to get IV antibiotics. Will get this arranged as an outpatient. Case management was Consulted and patient's cultures revealed Pseudomonas and Streptococcus which were sensitive to Levaquin. Continue Levaquin going forward. Vital Signs/Physical Exam: Temp Pulse Resp BP Pulse Ox 97.9 F 76 19 130/75 98 11/25/20 07:44 11/25/20 07:44 11/25/20 07:44 11/25/20 07:44 11/25/20 07:44 General: Alert, In no apparent distress, Oriented x3 Laboratory Data at Discharge: WBC 9.00 K/uL (4.3-10.9) 11/24/20 04:16 Hgb 10.4 g/dL (13.6-17.9) L 11/24/20 04:16 Hct 29.7 % (39.6-49.0) L 11/24/20 04:16 Plt Count 229 K/uL (152-406) 11/24/20 04:16 Sodium 140 mmol/L (136-145) 11/25/20 04:26 Potassium 4.0 mmol/L (3.5-5.1) 11/25/20 04:26 BUN 17 mg/dL (7-18) 11/25/20 04:26 Creatinine 0.83 mg/dL (0.55-1.3) 11/25/20 04:26 Glucose 152 mg/dL (74-106) H 11/25/20 04:26 Magnesium 1.7 mg/dL (1.8-2.4) L 11/25/20 04:26 Total Bilirubin 0.3 mg/dL (0.2-1.0) 11/22/20 06:04 AST 12 U/L (15-37) L 11/22/20 06:04 ALT 16 U/L (12-78) 11/22/20 06:04 Alkaline Phosphatase 86 U/L (45-117) 11/22/20 06:04 Home Medications: Metformin ER [Glucophage ER*] 1 tab PO BID 11/22/20 Hydrocodone 7.5/APAP 325 [Grayling 7.5/325 mg*] 1 tab PO Q6H PRN #30 tab 11/25/20 Insulin NPH Human [Novolin N (Humulin N)*] 15 units SQ BIDWM #2 vial 11/25/20 New Medications: Hydrocodone 7.5/APAP 325 [Grayling 7.5/325 mg*] 1 tab PO Q6H PRN #30 tab PRN Reason: Pain Scale 5-7 (Moderate) Insulin NPH Human [Novolin N (Humulin N)*] 15 units SQ BIDWM #2 vial Physician Discharge Instructions: OK TO DC IV AND DC HOME FOLLOW-UP WITH PRIMARY CARE PROVIDER IN 1-2 WEEKS FOLLOW-UP WITH [facility] IN 1-2 WEEKS RETURN TO THE ER IF symptoms worsen CALL or TEXT DR. PENDLETON AT [phone] IF ANY QUESTIONS REGARDING HOSPITAL STAY. PLEASE CALL THE FLOOR AT [phone] IF ANY MEDICATION OR NURSING QUESTIONS. Diet: ADA Activity: Fall precautions Followup: NONE,NONE [Primary Care Provider] - Santiago Mendoza MD [ACTIVE - CAN ADMIT] - 12/08/20 ([facility] my clinic) Time spent managing pt's care (in minutes): 35
[2020-11-25] MEDS: Levofloxacin500mg IV 500 MG/100 ML BAG IV SCH (10:11)
[2020-11-25] MEDS: ASPIRIN EC 81 MG TAB PO SCH (10:12)
[2020-11-25] MEDS: FOLIC ACID 1 MG TABLET PO SCH (10:12)
[2020-11-25] MEDS: NPH (HUMAN) 100 UNITS/ML INSULIN SQ SCH (10:12)
[2020-11-25] MEDS: ENOXAPARIN 40 MG/0.4 ML SQ SCH (10:12)
[2020-11-25 10:21] VITALS: O2SAT 99
--- NOTE | 2020-11-25 13:10 | PN ---
Date of Progress Note: 11/25/2020 Subjective: The patient's cultures reviewed. These are growing out Streptococcus and Pseudomonas, s ensitive to vancomycin and Cipro. Objective: Vital Signs: Stable, afebrile. Extremities: Dressing clean, dry, and intact. Assessment: Infected wound with osteomyelitis of bilateral lower extremities. Recommendations: Wound care as ordered. Vancomycin and Cipro and then follow up in the Wound [facility] upon discharge. /MODL Voice ID: [id number] Report ID: [id number]
[2020-11-25 15:42] VITALS: BP 139/85; TEMP 97.6
== END 2020-11-25 16:11 | disposition home or self-care (01) | DRG 623 ==
LOC: ER 20:21 → ERHOLD 21:49 → 2ND 21:52
PROVIDERS: ADMIT Family Medicine; ATTEND Hospitalist
PROC: 0JBQ0ZZ Excision of Right Foot Subcutaneous Tissue and Fascia, Open Approach (ICD-10-PCS; 2020-11-22)
PROC: 0JBR0ZZ Excision of Left Foot Subcutaneous Tissue and Fascia, Open Approach (ICD-10-PCS; principal; 2020-11-22 11:00)
DX: E11.69 Type 2 diabetes mellitus with other specified complication (principal); M86.172 Other acute osteomyelitis, left ankle and foot; L03.116 Cellulitis of left lower limb; L97.419 Non-pressure chronic ulcer of right heel and midfoot with unspecified severity; E11.65 Type 2 diabetes mellitus with hyperglycemia; E11.51 Type 2 diabetes mellitus with diabetic peripheral angiopathy without gangrene; E11.610 Type 2 diabetes mellitus with diabetic neuropathic arthropathy; E11.621 Type 2 diabetes mellitus with foot ulcer; E11.628 Type 2 diabetes mellitus with other skin complications; L03.032 Cellulitis of left toe; L97.529 Non-pressure chronic ulcer of other part of left foot with unspecified severity; E86.0 Dehydration; D63.8 Anemia in other chronic diseases classified elsewhere; N28.9 Disorder of kidney and ureter, unspecified; B96.5 Pseudomonas (aeruginosa) (mallei) (pseudomallei) as the cause of diseases classified elsewhere; E66.9 Obesity, unspecified; B95.5 Unspecified streptococcus as the cause of diseases classified elsewhere; Z68.31 Body mass index [BMI] 31.0-31.9, adult; Z56.0 Unemployment, unspecified; Z79.899 Other long term (current) drug therapy; Z79.84 Long term (current) use of oral hypoglycemic drugs; Z20.822 Contact with and (suspected) exposure to COVID-19
CPT/HCPCS: 36415; 36569; 71045; 80048; 80053; 80202; 82607; 82728; 82947; 83036; 83540; 83735; 84439; 84443; 84466; 85025; 85652; 86140; 87040; 87070; 87075; 87077; 87186; 87205; 96365; 96372; 96375; 99285; J1100; J1650; J1815; J2250; J2270; J2405; J2704; J2710; J3010; J3370; J3475; J3590; J7030; J7040; J7050; U0003

== ENCOUNTER 2020-12-01 11:29 | Emergency (ER) | payer SELFPAY ==
--- OUTSIDE RECORDS SUMMARY | 2020-12-01 11:33 | XMS REPORT | Continuity of Care Document ---
:1985 Author Organization [facility] t Address [address] [place] [address] Care Team Providers Name Role Phone Larry [...] Type Clinicians Facility Department ID 2020-08-10 2020-08-13 [facility] Chiara Vanessa [id number] 09:36:00 15:15:00 Encounter Willie Salgado [id number] Edgar Sims [facility] [phone] [id number] Results This patient has no known results.
[2020-12-01 14:07] LABS: Albumin 2.3 g/dL (3.4-5.0); Bilirubin Total 0.2 mg/dL (0.2-1.0); Potassium 4.7 mmol/L (3.5-5.1); Protein, Total 7.1 g/dL (6.4-8.2)
[2020-12-01] MEDS ORDERED: ONDANSETRON 4 MG/2 ML VIAL ONE (14:32)
[2020-12-01] MEDS ORDERED: MORPHINE 4 MG/ML SYR ONE (14:32)
[2020-12-01 16:00] LABS: Basophils % 0.6 % (0-1.3); Hematocrit 31.4 % (39.6-49.0); Lymphocytes % 21.4 % (15.3-44.8); MPV 8.3 fL (7.6-11.3)
--- NOTE | 2020-12-01 17:08 | ER ---
Nurse's Notes [facility] Name: Alex Naik Age: 35 yrs Sex: Male : 1985 Arrival Date: 12/01/2020 Time: 11:35 Bed 28 Private MD: Diagnosis: Cellulitis of left toe Presentation: 12/01 11:42 Chief complaint: Patient states: i was released from here on the . they did like a tw2 clean up on my LEFT foot. I have been very swollen on the LEFT foot. I dont think it is getting any better. I called Dr. Mendoza's office and they told me to come here. I have been having like a lot of pain and its very swollen and it is draining yellow stuff. Chief complaint: Patient states: And it smells really bad so i know its infected really bad and they told me it was infected in to the bone so that is why i have the picc line. Coronavirus screen: At this time, the client does not indicate any symptoms associated with coronavirus-19. Ebola Screen: Patient denies travel to an Ebola-affected area in the 21 days before illness onset. Initial Sepsis Screen: Does the patient meet any 2 criteria? No. Patient's initial sepsis screen is negative. Does the patient have a suspected source of infection? No. Patient's initial sepsis screen is negative. Risk Assessment: Do you want to hurt yourself or someone else? Patient reports no desire to harm self or others. Onset of symptoms was December 01, 2020. 11:42 Method Of Arrival: Ambulatory tw2 11:42 Acuity: JCARLOS 3 tw2 11:47 Note PICC line to RIGHT upper arm. tw2 Triage Assessment: 11:46 General: Appears in no apparent distress. Behavior is calm, cooperative, appropriate tw2 for age. Pain: Complains of pain in left foot. Historical: - Allergies: 11:46 No Known Allergies; tw2 - Home Meds: 11:46 "insulin" [Active]; tw2 - PMHx: 11:46 Diabetes - IDDM; tw2 - PSHx: 11:46 None; tw2 - Immunization history:: Adult Immunizations. - Social history:: Smoking status: . Screenin:52 Abuse screen: Denies threats or abuse. Denies injuries from another. Nutritional zb screening: No deficits noted. Tuberculosis screening: No symptoms or risk factors identified. Fall Risk None identified. Assessment: 13:30 General: Appears in no apparent distress. uncomfortable, Behavior is anxious. Pain: zb Complains of pain in left foot Pain currently is 9 out of 10 on a pain scale. Quality of pain is described as aching, dull, Aggravated by increased activity, repositioning, weight bearing. Neuro: Level of Consciousness is awake, alert, Oriented to person, place, time, Dry Wall Sprayer are equal bilaterally Moves all extremities. Full function Gait is steady. Cardiovascular: Capillary refill is sluggish in left toes Patient's skin is warm and dry. Edema pitting to left ankle, left foot, left toes and right ankle. Respiratory: Airway is patent Respiratory effort is even, unlabored, Respiratory pattern is regular, symmetrical. GI: Abdomen is round. Derm: Wound noted arch of right foot and left foot Wound is left foot greater toe, is dark purple with purulent drainage oozing from the side. Reports pain that is 9 out of 10 on a pain scale. Musculoskeletal: Circulation, motion, and sensation intact. Range of motion: intact in all extremities, Swelling present in right foot and left foot. 13:37 Reassessment: doppler preformed on left foot pulse. pulse present notified ECP. zb 13:52 Reassessment: patient requesting pain medication. notified ECP. zb 14:40 Reassessment: Patient appears in no apparent distress at this time. Patient and/or zb family updated on plan of care and expected duration. Pain level reassessed. Patient is alert, oriented x 3, equal unlabored respirations, skin warm/dry/pink. pain has decreased with medication. 15:54 Reassessment: Patient appears in no apparent distress at this time. Patient and/or zb family updated on plan of care and expected duration. Pain level reassessed. Patient is alert, oriented x 3, equal unlabored respirations, skin warm/dry/pink. patient resting in bed at this time. 16:30 Reassessment: Patient appears in no apparent distress at this time. Patient and/or zb family updated on plan of care and expected duration. Pain level reassessed. Patient is alert, oriented x 3, equal unlabored respirations, skin warm/dry/pink. 17:22 Reassessment: patient IV fluids infusing d/c pending. zb 18:48 Reassessment: Patient appears in no apparent distress at this time. Patient and/or zb family updated on plan of care and expected duration. Pain level reassessed. Patient is alert, oriented x 3, equal unlabored respirations, skin warm/dry/pink. patient ambulatory. d/c instructions given. bilateral feet dressed with dry gauze. 18:50 Reassessment: IV infusing complete. zb Vital Signs: 11:42 BP 137 / 89; Pulse 88; Resp 17; Temp 97.4(TE); Pulse Ox 99% on R/A; Weight 92.99 kg tw2 (R); Pain 9/10; 14:36 BP 121 / 81; Pulse 68; Resp 16; Pulse Ox 100% on R/A; zb 15:40 Pulse 72; Resp 16; Pulse Ox 99% on R/A; zb 18:00 BP 148 / 90; Pulse 89; Resp 16; Pulse Ox 100% on R/A; zb ED Course: 11:35 Patient arrived in ED. am2 11:45 Triage completed. tw2 11:46 Arm band placed on. tw2 13:00 Padmini Pa RN is Primary Nurse. zb 13:01 Chapo Anguiano PA is PHCP. jmm 13:01 Santhosh Barron MD is Attending Physician. jmm 13:20 Flushed right PICC line 10ml of NS. zb 13:52 Patient has correct armband on for positive identification. Bed in low position. Call zb light in reach. Side rails up X 1. Pulse ox on. NIBP on. Door closed. Noise minimized. Warm blanket given. 17:06 Santiago Mendoza MD is Referral Physician. jmm 18:46 No provider procedures requiring assistance completed. Converted IV to saline lock on zb right PICC line saline locked. . 18:48 PICC line done. zb Administered Medications: 14:18 Drug: morphine 4 mg {Note: Admistered in pt picc. RASS 0.} Route: IVP; Site: right zb upper arm; 14:40 Follow up: Response: No adverse reaction; Pain is decreased; RASS: Alert and Calm (0) zb 14:18 Drug: Zofran (Ondansetron) 4 mg {Note: Pt's PICC line .} Route: IVP; Site: right upper zb arm; 14:40 Follow up: Response: No adverse reaction zb 17:20 Drug: LevaQUIN (levofloxacin) 500 mg {Note: Administered in PICC .} Volume: 100 ml; zb Route: IVPB; Infused Over: 60 mins; Site: right upper arm; 18:50 Follow up: Response: No adverse reaction; IV Status: Completed infusion; IV Intake: zb 100ml 17:20 Drug: Clindamycin 600 mg {Note: Administered in PICC .} Route: IVPB; Infused Over: 30 zb mins; Site: right upper arm; 17:53 Follow up: Response: No adverse reaction; IV Status: Completed infusion; IV Intake: 50mlzb Intake: 17:53 IV: 50ml; Total: 50ml. zb 18:50 IV: 100ml; Total: 150ml. zb Outcome: 17:07 Discharge ordered by MD. irvin 18:47 Discharged to home ambulatory. zb 18:47 Condition: stable 18:47 Discharge instructions given to patient, Instructed on discharge instructions, follow up and referral plans. medication usage, Demonstrated understanding of instructions, follow-up care, medications, Prescriptions given X 1. 18:51 Patient left the ED. zb Signatures: Chapo Anguiano PA PA jmm Wise, Tara, RN RN tw2 Babita Blanc Zipporah, RN RN zb
--- NOTE | 2020-12-01 17:08 | EDPHYS ---
Physician Documentation [facility] Name: Alex Naik Age: 35 yrs Sex: Male : 1985 Arrival Date: 12/01/2020 Time: 11:35 Bed 28 Private MD: ED Physician Santhosh Barron HPI: 12/01 13:08 This 35 yrs old Male presents to ER via Ambulatory with complaints of Foot jmm Pain - swelling. 13:08 The patient presents with pain, that is acute, swelling. Onset: The symptoms/episode jmm began/occurred gradually. Modifying factors: The symptoms are alleviated by nothing. the symptoms are aggravated by nothing. Associated signs and symptoms: Pertinent positives: swelling, Pertinent negatives fever. This is a 35 year old male with a history of DM, that presents to the ED with swelling to the left foot. Patient states symptoms have worsened since surgery 1 week ago. Patient is currently on IV antibiotics. . Historical: - Allergies: 11:46 No Known Allergies; tw2 - Home Meds: 11:46 "insulin" [Active]; tw2 - PMHx: 11:46 Diabetes - IDDM; tw2 - PSHx: 11:46 None; tw2 - Immunization history:: Adult Immunizations. - Social history:: Smoking status: . ROS: 13:08 Constitutional: Negative for fever, chills, and weight loss, Cardiovascular: Negative jmm for chest pain, palpitations, and edema, Respiratory: Negative for shortness of breath, cough, wheezing, and pleuritic chest pain. 13:08 Skin: Positive for erythema. 13:08 All other systems are negative. Exam: 13:08 Constitutional: This is a well developed, well nourished patient who is awake, alert, jmm and in no acute distress. Head/Face: atraumatic. Eyes: EOMI, no conjunctival erythema appreciated ENT: Moist Mucus Membranes Neck: Trachea midline, Supple Chest/axilla: Normal chest wall appearance and motion. Cardiovascular: Regular rate and rhythm. No edema appreciated Respiratory: Normal respirations, no respiratory distress appreciated Abdomen/GI: Non distended, soft Back: Normal ROM 13:08 Skin: erythema noted to the left great toe. 13:08 Neuro: Orientation: is normal, Mentation: is normal, Memory: is normal. 13:08 Psych: Behavior/mood is pleasant, cooperative. Vital Signs: 11:42 BP 137 / 89; Pulse 88; Resp 17; Temp 97.4(TE); Pulse Ox 99% on R/A; Weight 92.99 kg tw2 (R); Pain 9/10; 14:36 BP 121 / 81; Pulse 68; Resp 16; Pulse Ox 100% on R/A; zb 15:40 Pulse 72; Resp 16; Pulse Ox 99% on R/A; zb 18:00 BP 148 / 90; Pulse 89; Resp 16; Pulse Ox 100% on R/A; zb MDM: 13:13 Patient medically screened. [facility] 17:05 Data reviewed: vital signs, nurses notes. Counseling: I had a detailed discussion with [facility] the patient and/or guardian regarding: the historical points, exam findings, and any diagnostic results supporting the discharge/admit diagnosis, lab results, radiology results, the need for outpatient follow up, to return to the emergency department if symptoms worsen or persist or if there are any questions or concerns that arise at home. 12/01 13:07 Order name: CMP; Complete Time: 14:14 [facility] 12/01 13:07 Order name: Procalcitonin; Complete Time: 16:50 [facility] 12/01 13:07 Order name: Lactate; Complete Time: 14:44 [facility] 12/01 13:07 Order name: Blood Culture Adult (2) [facility] 12/01 13:34 Order name: CRP; Complete Time: 14:44 [facility] 12/01 13:07 Order name: Saline Lock; Complete Time: 13:37 [facility] 12/01 13:34 Order name: ESR; Complete Time: 14:07 [facility] 12/01 14:23 Order name: CBC with Diff; Complete Time: 16:05 [facility] 12/01 16:11 Order name: Wound Culture [facility] Administered Medications: 14:18 Drug: morphine 4 mg {Note: Admistered in pt picc. RASS 0.} Route: IVP; Site: right zb upper arm; 14:40 Follow up: Response: No adverse reaction; Pain is decreased; RASS: Alert and Calm (0) zb 14:18 Drug: Zofran (Ondansetron) 4 mg {Note: Pt's PICC line .} Route: IVP; Site: right upper zb arm; 14:40 Follow up: Response: No adverse reaction zb 17:20 Drug: LevaQUIN (levofloxacin) 500 mg {Note: Administered in PICC .} Volume: 100 ml; zb Route: IVPB; Infused Over: 60 mins; Site: right upper arm; 18:50 Follow up: Response: No adverse reaction; IV Status: Completed infusion; IV Intake: zb 100ml 17:20 Drug: Clindamycin 600 mg {Note: Administered in PICC .} Route: IVPB; Infused Over: 30 zb mins; Site: right upper arm; 17:53 Follow up: Response: No adverse reaction; IV Status: Completed infusion; IV Intake: 50mlzb Disposition: 12/01/20 17:07 Discharged to Home. Impression: Cellulitis of left toe. - Condition is Stable. - Discharge Instructions: Cellulitis, Adult. - Prescriptions for Clindamycin HCl 300 mg Oral Capsule - take 1 capsule by ORAL route every 6 hours for 10 days; 40 capsule. - Medication Reconciliation Form, Thank You Letter, Antibiotic Education, Prescription Opioid Use form. - Follow up: Santiago Mendoza MD; When: 12/03/2020; Reason: Re-evaluation by your physician. Addendum: 12/02/2020 19:05 Co-signature as Attending Physician, Santhosh Barron MD. r n Signatures: Dispatcher [employer] [facility] Chapo Anguiano PA PA Santhosh Campos MD MD rn Wise, Tara, RN RN tw2 Padmini Pa RN RN zb Corrections: (The following items were deleted from the chart) 12/01 13:09 13:08 BASIC METABOLIC PANEL+[id number].LAB.BRZ ordered. [facility] 18:51 17:07 12/01/2020 17:07 Discharged to Home. Impression: Cellulitis of left toe. zb Condition is Stable. Forms are Medication Reconciliation Form, Thank You Letter, Antibiotic Education, Prescription Opioid Use. Follow up: Dr. Santiago Mendoza; When: 12/03/2020; Reason: Re-evaluation by your physician. [facility]
[2020-12-01] MEDS ORDERED: Levofloxacin 750mg IV 750 MG/150 ML BAG IV ONE (17:14)
[2020-12-01] MEDS ORDERED: CLINDAMYCIN 600MG/D5W 600 MG/50 ML BAG IV ONE (17:14)
[2020-12-01 19:01] VITALS: TEMP 97.4
[2020-12-01 19:05] VITALS: BP 148/90; O2SAT 100
== END 2020-12-01 18:51 | disposition home or self-care (01) ==
LOC: ER 11:29
DX: L03.032 Cellulitis of left toe (principal); E11.9 Type 2 diabetes mellitus without complications; Z79.4 Long term (current) use of insulin
CPT/HCPCS: 36415; 80053; 83605; 84145; 85025; 85652; 86140; 87040; 87070; 87205; 96365; 96368; 96375; 99283; J2405